=== PATIENT | male | born 1990 ===

== ENCOUNTER 2018-06-18 16:04 | Emergency (ER) | payer OTHER ==
[2018-06-18 16:12] VITALS: BP 129/66; PULSE 129; RESP 17; TEMP 97.9; O2SAT 98
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
== END 2018-06-18 16:27 | disposition home or self-care (01) ==
LOC: H.ER 16:04
DX: Z03.89 Encounter for observation for other suspected diseases and conditions ruled out (principal)